=== PATIENT | male | born 1995 | race African-American/Black ===

== ENCOUNTER 2022-03-17 21:06 | Emergency (ER) | payer SELFPAY ==
[~2022-03-17] VITALS: Ht 182.9 cm; Wt 71.0 kg
[2022-03-17 21:10] VITALS: BP 132/85
== END 2022-03-18 00:31 | disposition left against medical advice (07) ==
LOC: ER 21:06
DX: Z53.21 Procedure and treatment not carried out due to patient leaving prior to being seen by health care provider (principal)

== ENCOUNTER 2022-08-07 18:49 | Emergency (ER) | payer MEDICAID ==
[~2022-08-07] VITALS: Ht 182.9 cm; Wt 73.0 kg
[2022-08-07 18:52] VITALS: BP 131/88
[2022-08-07] MEDS ORDERED: BACITRACIN ZINC OINT UDPKT TOP ONE ×2 (19:00→20:30)
[2022-08-07] MEDS ORDERED: ACETAMINOPHEN 325MG TABLET PO ONE (19:00)
[2022-08-07] MEDS ORDERED: TETANUS, DIPHTHERIA, PERTUSSIS VAC/PF 0.5ML (>10YR OLD) IM ONE (19:00)
[2022-08-07] MEDS ORDERED: AMOX1TAB16 MT (20:25)
[2022-08-07] MEDS ORDERED: IBUP-2029 MT (20:25)
[2022-08-07] MEDS ORDERED: AMOXICILLIN/POTASSIUM CLAVULANATE 875/125MG TAB PO ONE (20:30)
== END 2022-08-07 21:10 | disposition home or self-care (01) ==
LOC: ER 18:49
DX: S81.012A Laceration without foreign body, left knee, initial encounter (principal); Z90.49 Acquired absence of other specified parts of digestive tract; Y08.89XA Assault by other specified means, initial encounter; Y93.89 Activity, other specified; Y92.89 Other specified places as the place of occurrence of the external cause
CPT/HCPCS: 73560; 99283; Z7610